=== PATIENT | male | born 1995 | race Caucasian/White ===

== ENCOUNTER 2018-10-15 17:00 | Emergency (ER) | payer BC ==
[~2018-10-15] VITALS: Ht 188 cm; Wt 111.4 kg
[2018-10-15 17:08] VITALS: BP 126/75; TEMP 97.9
[2018-10-15] MEDS ORDERED: NEURONTIN300 MG/CAP PO (17:12)
[2018-10-15] MEDS ORDERED: MOBIC15 MG PO (17:13)
[2018-10-15] MEDS ORDERED: FLEXERIL 1010 MG/TAB PO (17:27)
[2018-10-15 17:45] VITALS: PULSE 69
== END 2018-10-15 17:45 | disposition home or self-care (01) ==
LOC: COL.ER 17:00
DX: M54.5 Low back pain (principal)
CPT/HCPCS: J1885

== ENCOUNTER 2018-10-19 00:03 | Emergency (ER) | payer BC ==
[~2018-10-19] VITALS: Ht 188 cm; Wt 111.4 kg
[~2018-10-19 00:03] MED LIST: FLEXERIL 1010 MG/TAB PO; MOBIC15 MG PO; NEURONTIN300 MG/CAP PO
[2018-10-19 00:06] VITALS: BP 116/77; TEMP 98.6
[2018-10-19 01:34] LABS: BASO % 0.1 % (0.0-2.0); GRAN # 11.7 (1.4-6.5); GRAN % 88.2 % (42.2-75.2); HEMATOCRIT 45.9 % (42.0-52.0); HEMOGLOBIN 15.7 g/dl (13.5-18.0); LYMPH # 1.1 (1.2-3.4); LYMPH % 7.9 % (20.0-51.0); MEAN CELL VOLUME 90 fl (80.0-100.0); MEAN CORPUSCULAR HEMOGLOBIN 31 pg (27.0-31.0); MEAN CORPUSCULAR HGB CONC 34 g/dl (33.0-37.0); MEAN PLATELET VOLUME 11.4 fl (7.4-10.4); MONO # 0.4 (0.1-0.6); MONO % 3.3 % (1.7-9.3); PLATELET COUNT 241 K/mm3 (130-400); RED BLOOD COUNT 5.09 M/mm3 (4.20-5.60); REDCELL DISTRIBUTION WIDTH-CV 12.2 % (11.5-14.5)
[2018-10-19 01:42] LABS: ALANINE AMINOTRANSFERASE 21 U/L (21-72); ALBUMIN 4.8 gm/dL (3.5-5.0); ALKALINE PHOSPHATASE 58 U/L (50-136); ANION GAP 9 mmol/L (7-16); AST,SGOT 25 U/L (15-37); BILIRUBIN,TOTAL 0.6 mg/dL (0.0-1.0); BLOOD UREA NITROGEN 13 mg/dL (9-20); CALCIUM 10.3 mg/dL (8.4-10.2); CARBON DIOXIDE 24 mmol/L (22-30); CHLORIDE 108 mmol/L (98-107); CREATININE, serum 0.68 mg/dL (0.66-1.25); GLUCOSE 119 mg/dL (74-106); SODIUM 141 mmol/L (137-145); TOTAL PROTEIN 8.7 gm/dL (6.4-8.2)
[2018-10-19 01:44] LABS: POTASSIUM 4.2 mmol/L (3.4-5.0)
[2018-10-19 02:15] LABS: C-REACTIVE PROTEIN < 0.5 mg/dL (0.0-0.9)
[2018-10-19] MEDS ORDERED: NORCO 325 MG-51 TAB PO (02:29)
[2018-10-19 02:50] VITALS: PULSE 78
== END 2018-10-19 02:51 | disposition home or self-care (01) ==
LOC: COL.ER 00:03
PROVIDERS: Nurse Practitioner
DX: M54.5 Low back pain (principal); F17.210 Nicotine dependence, cigarettes, uncomplicated; Z87.828 Personal history of other (healed) physical injury and trauma
CPT/HCPCS: J1170

== ENCOUNTER 2020-06-07 20:52 | Emergency (ER) | payer SELFPAY ==
[~2020-06-07] VITALS: Ht 188 cm; Wt 125.0 kg
[~2020-06-07 20:52] MED LIST changes: +LEXAPRO 10MG10 MG PO; +LIDODERM 5% PATC1 EA TP; +MEDROL 4MG DOSPA4 MG PO; +NORCO 325 MG-51 TAB PO
[2020-06-07] MEDS ORDERED: PERCOCET 325 MG1 TA3 PO (21:45)
[2020-06-07 22:28] VITALS: BP 144/70; PULSE 78; TEMP 97.6
== END 2020-06-07 22:28 | disposition home or self-care (01) ==
LOC: COL.ER 20:52
DX: G89.18 Other acute postprocedural pain (principal); M25.561 Pain in right knee; F32.9 Major depressive disorder, single episode, unspecified
CPT/HCPCS: J3010